=== PATIENT | male | born 1930 | race Caucasian/White ===

== ENCOUNTER 2018-12-25 10:55 | Emergency (ER) | payer MEDICARE, BC ==
[~2018-12-25] VITALS: Ht 167.6 cm; Wt 87.3 kg
[2018-12-25 11:24] LABS: HEMATOCRIT 38.6 % (39.0-50.0); HEMOGLOBIN 12.5 g/dl (14.0-18.0); IMMATURE GRANULOCYTES 0.8 % (0.0-5.0); MEAN CELL VOLUME 105.2 fL CALC (80.0-100.0); MEAN CORPUSCULAR HGB 34.1 pG CALC (26.0-32.0); MEAN CORPUSCULAR HGB CONC 32.4 g/L CALC (32.0-36.0); NEUT# 5.88 thou/uL (1.82-7.42); RED BLOOD COUNT 3.67 mill/uL (4.70-6.10); RED CELL DISTRI WIDTH 14.7 % (11.5-15.5)
[2018-12-25] MEDS ORDERED: FUROSEMIDE20 MG PO (11:42)
[2018-12-25] MEDS ORDERED: PROPAFENONE150 M1 PO (11:43)
[2018-12-25] MEDS ORDERED: ELIQUIS2.5 MG PO (11:43)
[2018-12-25] MEDS ORDERED: TAMSULOSIN HCL0.4 MG PO (11:44)
[2018-12-25] MEDS ORDERED: METOPROL TAR25 MG PO (11:44)
[2018-12-25] MEDS ORDERED: SIMVASTATIN20 MG PO (11:45)
[2018-12-25] MEDS ORDERED: VENTOLIN HFA IN (11:45)
[2018-12-25 11:46] LABS: ANION GAP 11 (6-22 (CALC)); BUN 28 mg/dL (8-23); BUN/CREATININE RATIO 19 (12-20 (CALC)); CARBON DIOXIDE 32 mmol/l (22-30); CHLORIDE 104 mmol/l (95-108); CREATININE 1.4 mg/dL (0.7-1.3); GFR 48 ML/MIN (>=60 (CALC)); GFR FOR AFR.AMER. 58 ML/MIN (>=60 (CALC)); POTASSIUM 4.6 mmol/l (3.5-5.1); SODIUM 142 mmol/l (137-146)
[2018-12-25] MEDS ORDERED: FLOVENT HF110 MCG/AC IN (11:46)
[2018-12-25 13:11] VITALS: BP 107/56
== END 2018-12-25 13:11 | disposition home or self-care (01) ==
LOC: ED 10:55
PROVIDERS: Family Medicine
DX: J06.9 Acute upper respiratory infection, unspecified (principal); J44.9 Chronic obstructive pulmonary disease, unspecified; I48.91 Unspecified atrial fibrillation; Z86.73 Personal history of transient ischemic attack (TIA), and cerebral infarction without residual deficits

== ENCOUNTER 2019-02-19 11:03 | Emergency (ER) | payer MEDICARE, BC ==
[~2019-02-19 11:03] MED LIST: ELIQUIS2.5 MG PO; FLOVENT HF110 MCG/AC IN; FUROSEMIDE20 MG PO; METOPROL TAR25 MG PO; PROPAFENONE150 M1 PO; SIMVASTATIN20 MG PO; TAMSULOSIN HCL0.4 MG PO; VENTOLIN HFA IN
[2019-02-19] MEDS ORDERED: CEPHALEXIN500 M1 PO (12:07)
[2019-02-19 12:29] VITALS: BP 120/62
== END 2019-02-19 12:29 | disposition home or self-care (01) ==
LOC: ED 11:03
DX: L60.0 Ingrowing nail (principal); L03.032 Cellulitis of left toe; J44.9 Chronic obstructive pulmonary disease, unspecified; I48.91 Unspecified atrial fibrillation; Z86.73 Personal history of transient ischemic attack (TIA), and cerebral infarction without residual deficits

== ENCOUNTER 2019-04-02 | Emergency (ER) | payer MEDICARE, BC ==
[~2019-04-02] MED LIST changes: +CEPHALEXIN500 M1 PO
--- NOTE | 2019-04-02 02:59 | NUR ---
BREATHING TREATMENT GIVEN BACK TO BACK.
[2019-04-02 03:04] LABS: HEMATOCRIT 35.3 % (39.0-50.0); HEMOGLOBIN 11.4 g/dl (14.0-18.0); IMMATURE GRANULOCYTES 0.6 % (0.0-5.0); MEAN CORPUSCULAR HGB 34.2 pG CALC (26.0-32.0); MEAN CORPUSCULAR HGB CONC 32.3 g/L CALC (32.0-36.0); NEUT# 5.02 thou/uL (1.82-7.42); RED BLOOD COUNT 3.33 mill/uL (4.70-6.10); RED CELL DISTRI WIDTH 15.2 % (11.5-15.5)
[2019-04-02 03:16] LABS: ALKALINE PHOSPHATASE 89 u/l (38-126); ANION GAP 14 (6-22 (CALC)); BILIRUBIN, TOTAL 0.4 mg/dL (0.0-1.4); BUN 34 mg/dL (8-23); BUN/CREATININE RATIO 19 (12-20 (CALC)); CARBON DIOXIDE 28 mmol/l (22-30); CHLORIDE 101 mmol/l (95-108); CREATININE 1.8 mg/dL (0.7-1.3); GFR 36 ML/MIN (>=60 (CALC)); GFR FOR AFR.AMER. 44 ML/MIN (>=60 (CALC)); POTASSIUM 4.5 mmol/l (3.5-5.1); SGOT/AST 33 u/l (19-48); SODIUM 139 mmol/l (137-146)
[2019-04-02 03:27] LABS: MYOGLOBIN 99 ng/mL (0 - 121)
[2019-04-02 04:56] LABS: URINE BILIRUBIN - DIPSTICK NEGATIVE (NEGATIVE); URINE BLOOD DIPSTICK SMALL (NEGATIVE); URINE COLOR YELLOW; URINE GLUCOSE - DIPSTICK NEGATIVE (NEGATIVE); URINE KETONE NEGATIVE (NEGATIVE); URINE LEUK ESTERASE NEGATIVE (NEGATIVE); URINE NITRITE - DIPSTICK NEGATIVE (Negative); URINE PH 5.5 (4.5-8.0); URINE PROTEIN - DIPSTICK NEGATIVE (NEG-TRACE); URINE SPECIFIC GRAVITY 1.025; URINE UROBILINOGEN - DIPSTICK 0.2 E.U./dL (0.2)
[2019-04-02 04:57] LABS: URINE SQUAMOUS EPITHELIAL CELL FEW EPI/hpf (0-FEW)
[2019-04-02] MEDS ORDERED: STERAPRED DS10 MG PO (05:00)
== END 2019-04-02 05:10 | disposition home or self-care (01) ==
PROVIDERS: Family Medicine
DX: J44.1 Chronic obstructive pulmonary disease with (acute) exacerbation (principal); I48.91 Unspecified atrial fibrillation; Z86.73 Personal history of transient ischemic attack (TIA), and cerebral infarction without residual deficits

== ENCOUNTER 2019-04-17 | Emergency (ER) | payer MEDICARE, BC ==
[~2019-04-17] MED LIST changes: +STERAPRED DS10 MG PO
[2019-04-17 12:22] LABS: IMMATURE GRANULOCYTES 1.4 % (0.0-5.0); MEAN CELL VOLUME 103.2 fL CALC (80.0-100.0); MEAN CORPUSCULAR HGB 34.4 pG CALC (26.0-32.0); MEAN CORPUSCULAR HGB CONC 33.3 g/L CALC (32.0-36.0); NEUT# 21.38 thou/uL (1.82-7.42); RED BLOOD COUNT 3.49 mill/uL (4.70-6.10); RED CELL DISTRI WIDTH 15.8 % (11.5-15.5)
[2019-04-17 12:33] LABS: ALBUMIN 3.7 g/dL (3.2-5.0); CREATININE 1.9 mg/dL (0.7-1.3); POTASSIUM 3.9 mmol/l (3.5-5.1)
[2019-04-17 12:34] LABS: BILIRUBIN, TOTAL 0.8 mg/dL (0.0-1.4)
[2019-04-17] MEDS ORDERED: DOXYCYCLINE100 MG PO (12:54)
[2019-04-17] MEDS ORDERED: PREDNISONE10 MG PO (12:54)
== END 2019-04-17 13:08 | disposition home or self-care (01) ==
DX: J44.1 Chronic obstructive pulmonary disease with (acute) exacerbation (principal); J44.0 Chronic obstructive pulmonary disease with (acute) lower respiratory infection; J18.9 Pneumonia, unspecified organism; I48.91 Unspecified atrial fibrillation

== ENCOUNTER 2021-09-08 08:32 | Emergency (ER) | payer MEDICARE, BC ==
[~2021-09-08] VITALS: Ht 167.6 cm; Wt 95.4 kg
[2021-09-08] VITALS (8 sets, daily range): BP systolic 116–147; BP diastolic 63–81
[~2021-09-08 08:32] MED LIST changes: +DOXYCYCLINE100 MG PO; +PREDNISONE10 MG PO
[2021-09-08 09:18] LABS: IMMATURE GRANULOCYTES 0.8 % (0.0-5.0); MEAN CELL VOLUME 110.2 fL CALC (80.0-100.0); MEAN CORPUSCULAR HGB 36.3 pG CALC (26.0-32.0); MEAN CORPUSCULAR HGB CONC 32.9 g/dL CAL (32.0-36.0); NEUT# 2.68 thou/uL (1.82-7.42); RED BLOOD COUNT 4.88 mill/uL (4.70-6.10); RED CELL DISTRI WIDTH 15.1 % (11.5-15.5)
[2021-09-08 09:21] LABS: HEMATOCRIT 53.8 % (39.0-50.0); HEMOGLOBIN 17.7 g/dl (14.0-18.0)
[2021-09-08] MEDS ORDERED: FUROSEMIDE20 MG PO (09:30)
[2021-09-08 09:45] LABS: ALBUMIN 3.9 g/dL (3.2-5.0); ALKALINE PHOSPHATASE 84 u/l (38-126); ANION GAP 10 (6-22 (CALC)); BILIRUBIN, TOTAL 0.3 mg/dL (0.0-1.4); BUN 36 mg/dL (8-23); BUN/CREATININE RATIO 23 (12-20 (CALC)); CARBON DIOXIDE 30 mmol/l (22-30); CHLORIDE 104 mmol/l (95-108); CREATININE 1.6 mg/dL (0.7-1.3); GFR FOR AFR.AMER. 50 ML/MIN (>=60 (CALC)); GFR OTHER RACES 41 ML/MIN (>=60 (CALC)); POTASSIUM 4.3 mmol/l (3.5-5.1); SGOT/AST 31 u/l (19-48); SODIUM 139 mmol/l (137-146)
== END 2021-09-08 10:36 | disposition home or self-care (01) ==
LOC: ED 08:32
PROVIDERS: Family Medicine
DX: U07.1 COVID-19 (principal); R05.9 Cough, unspecified; R53.1 Weakness; I10 Essential (primary) hypertension; J44.9 Chronic obstructive pulmonary disease, unspecified; I48.91 Unspecified atrial fibrillation; Z86.73 Personal history of transient ischemic attack (TIA), and cerebral infarction without residual deficits; R06.02 Shortness of breath

== ENCOUNTER 2022-06-29 07:12 | Observation (INO) | payer MEDICARE, BC ==
[~2022-06-29] VITALS: Ht 172.7 cm; Wt 98.5 kg
[2022-06-29] VITALS (27 sets, daily range): BP systolic 103–130; BP diastolic 47–97
[2022-06-29 07:53] LABS: BASO% 0.3 % (0-3); EOS% 0.8 % (0-8); HEMOGLOBIN 10.9 g/dl (14.0-18.0); IMMATURE GRANULOCYTES 0.6 % (0.0-5.0); LYMPH% 5.6 % (15-41); MEAN CELL VOLUME 110.4 fL CALC (80.0-100.0); MEAN CORPUSCULAR HGB 35.4 pG CALC (26.0-32.0); MEAN CORPUSCULAR HGB CONC 32.1 g/dL CAL (32.0-36.0); MONO% 10.8 % (2-13); NEUT# 9.75 thou/uL (1.82-7.42); NEUT% 81.9 % (42-76); RED BLOOD COUNT 3.08 mill/uL (4.70-6.10); RED CELL DISTRI WIDTH 14.7 % (11.5-15.5)
[2022-06-29 08:13] LABS: ALBUMIN 3.7 g/dL (3.2-5.0); CREATININE 1.9 mg/dL (0.7-1.3); POTASSIUM 4.3 mmol/l (3.5-5.1); TOTAL PROTEIN 6.3 g/dL (6.3-8.2)
[2022-06-29 08:16] LABS: BILIRUBIN, TOTAL 0.8 mg/dL (0.2-1.3)
[2022-06-29] MEDS ORDERED: TRELEGY ELLIPTA1 AE1 (09:02)
[2022-06-29] MEDS ORDERED: PROPAFENONE HY225 MG (09:03)
[2022-06-29] MEDS ORDERED: ALLOPURINOL100 MG PO (09:03)
[2022-06-29] MEDS ORDERED: SYMBICORT1 AE1 IN (09:04)
[2022-06-29 17:46] LABS: CREATININE 1.9 mg/dL (0.7-1.3); MAGNESIUM 2.2 mg/dL (1.6-2.3); POTASSIUM 4.6 mmol/l (3.5-5.1)
[2022-06-30 00:24] VITALS: BP 113/58
[2022-06-30 04:47] VITALS: BP 117/61
[2022-06-30 05:00] LABS: HEMATOCRIT 32.8 % (39.0-50.0); HEMOGLOBIN 10.6 g/dl (14.0-18.0); MEAN CELL VOLUME 110.8 fL CALC (80.0-100.0); MEAN CORPUSCULAR HGB 35.8 pG CALC (26.0-32.0); MEAN CORPUSCULAR HGB CONC 32.3 g/dL CAL (32.0-36.0); RED BLOOD COUNT 2.96 mill/uL (4.70-6.10); RED CELL DISTRI WIDTH 14.6 % (11.5-15.5)
[2022-06-30 05:22] LABS: ALBUMIN 3.5 g/dL (3.2-5.0); MAGNESIUM 2.4 mg/dL (1.6-2.3); POTASSIUM 4.4 mmol/l (3.5-5.1); TOTAL PROTEIN 6.1 g/dL (6.3-8.2)
[2022-06-30 05:31] LABS: BILIRUBIN, TOTAL 0.1 mg/dL (0.2-1.3)
[2022-06-30 05:34] VITALS: BP 117/61
[2022-06-30 07:31] VITALS: BP 119/58
[2022-06-30 12:10] VITALS: BP 114/51
[2022-06-30] MEDS ORDERED: ALBUTEROL SUL0.083 % IN (13:03)
[2022-06-30] MEDS ORDERED: AMOX/K CLAV875 M1 PO (13:04)
[2022-06-30] MEDS ORDERED: PREDNISONE10 MG PO (13:05)
== END 2022-06-30 14:48 | disposition home or self-care (01) ==
LOC: ED 07:12 → ED-I 10:50 → ED 11:01 → MS2 11:02
PROVIDERS: Family Medicine; ADMIT Internal Medicine; ATTEND Internal Medicine
DX: J44.1 Chronic obstructive pulmonary disease with (acute) exacerbation (principal); J96.01 Acute respiratory failure with hypoxia; I48.91 Unspecified atrial fibrillation; N18.9 Chronic kidney disease, unspecified; E78.5 Hyperlipidemia, unspecified; M10.9 Gout, unspecified; N40.0 Benign prostatic hyperplasia without lower urinary tract symptoms; Z86.73 Personal history of transient ischemic attack (TIA), and cerebral infarction without residual deficits; Z20.822 Contact with and (suspected) exposure to COVID-19

== ENCOUNTER 2022-07-20 06:32 | Observation (INO) | payer MEDICARE, BC ==
[2022-07-20] VITALS (16 sets, daily range): BP systolic 101–129; BP diastolic 58–81
[~2022-07-20] VITALS: Ht 172.7 cm; Wt 98.4 kg
[~2022-07-20 06:32] MED LIST changes: +ALBUTEROL SUL0.083 % IN; +ALLOPURINOL100 MG PO; +AMOX/K CLAV875 M1 PO; +PROPAFENONE HY225 MG; +SYMBICORT1 AE1 IN; +TRELEGY ELLIPTA1 AE1
--- NOTE | 2022-07-20 06:54 | NUR ---
arrived via ems with c/o shortness of breath
--- NOTE | 2022-07-20 07:15 | NUR ---
REPORT R'CD, CARE RESUMED. PT IS SITTING UP IN BED, FAMILY AT BEDSIDE, MEDS GIVEN, PT ASSESSED.
[2022-07-20 07:16] LABS: BASO% 0.2 % (0-3); EOS% 0.2 % (0-8); HEMATOCRIT 33.1 % (39.0-50.0); HEMOGLOBIN 10.7 g/dl (14.0-18.0); IMMATURE GRANULOCYTES 0.5 % (0.0-5.0); LYMPH% 3.5 % (15-41); MEAN CELL VOLUME 111.4 fL CALC (80.0-100.0); MEAN CORPUSCULAR HGB CONC 32.3 g/dL CAL (32.0-36.0); MONO% 5.2 % (2-13); NEUT# 15.06 thou/uL (1.82-7.42); NEUT% 90.4 % (42-76); RED BLOOD COUNT 2.97 mill/uL (4.70-6.10); RED CELL DISTRI WIDTH 16.4 % (11.5-15.5)
[2022-07-20 07:30] LABS: ALBUMIN 3.7 g/dL (3.2-5.0); CREATININE 1.4 mg/dL (0.7-1.3); POTASSIUM 3.9 mmol/l (3.5-5.1); TOTAL PROTEIN 6.4 g/dL (6.3-8.2)
[2022-07-20 07:31] LABS: BILIRUBIN, TOTAL 0.6 mg/dL (0.2-1.3)
[2022-07-20 07:57] LABS: URINE BILIRUBIN - DIPSTICK NEGATIVE (NEGATIVE); URINE BLOOD DIPSTICK NEGATIVE (NEGATIVE); URINE COLOR YELLOW; URINE GLUCOSE - DIPSTICK NEGATIVE (NEGATIVE); URINE KETONE NEGATIVE (NEGATIVE); URINE LEUK ESTERASE NEGATIVE (NEGATIVE); URINE PROTEIN - DIPSTICK NEGATIVE (NEG-TRACE); URINE UROBILINOGEN - DIPSTICK 0.2 E.U./dL (0.2)
[2022-07-20 07:58] LABS: URINE NITRITE - DIPSTICK NEGATIVE (Negative)
--- NOTE | 2022-07-20 08:15 | NUR ---
PT IN NAD, FAMILY AT BEDSIDE.
--- NOTE | 2022-07-20 09:00 | NUR ---
PT PROVIDED BREAKFAST, ALL NEEDS HAVE BEEN ADDRESSED.
--- NOTE | 2022-07-20 09:35 | NUR ---
REPORT GIVEN TO LISSET SAUCEDA WILL BE TRANSFERRED TO [facility] [place] RM 260
[2022-07-20] MEDS ORDERED: TOPROL XL50 MG PO (09:36)
--- NOTE | 2022-07-20 09:46 | NUR ---
PT ARRIVED TO [facility]IA [facility]ER. REPORT PROVIDED BY JEFF REED. A/OX3 AMBULATORY WITH [facility] STATES USES WALKER AT HOME. HEART RHYTHM ON TELE AFIB.RESPIATIONS ON 3L NC HOME DEPENDENT AT 4L. IV SITE NOTED . PT AWARE TO KEEP TRACK ON INPUT AND OUT PUT. PT DENIES ADDITIONAL NEEDS AT THE TIME ALL SAFETY PRECAUTIONS INPLACE.
--- NOTE | 2022-07-20 12:14 | NUR ---
PT MEDICATED PER EMAR. PHARMACY CALLED FOR PT HOME MEDICATION.
--- NOTE | 2022-07-20 16:05 | NUR ---
PT TO BE MEDICATED PER EMAR. PT RESTING IN HIGH FOWLERS POSITION IN CHAIR. 3LNC. PT STATES PT DISLIKE BEING ALONE. PT DENIES ADDITIONAL NEEDS AT THE TIME.
--- NOTE | 2022-07-20 20:00 | NUR ---
RECEIVED REPORT FROM DAYSHIFT NURSE. PT IS SITTING UP IN CHAIR WITH FAMILY AT BEDSIDE. ADVISED PT OF CHANGE OF NURSE FOR THE NIGHT. PT HAS NO COMPLAINTS AT THIS MOMENT. CALL LIGHT WITHIN REACH AND SAFETY PRECAUTIONS IN PLACE.
[2022-07-21] VITALS (11 sets, daily range): BP systolic 107–126; BP diastolic 53–67
--- NOTE | 2022-07-21 | NUR ---
PT IS LYING IN BED SLEEPING. PT SHOWS NO SIGNS OF PAIN OR DISCOMFORT. CALL LIGHT WITHIN REACH AND SAFETY PRECAUTIONS IN PLACE.
--- NOTE | 2022-07-21 04:00 | NUR ---
PT IS SLEEPING COMFORTABLY. NO SIGNS OF PAIN OR DISTRESS AT THE MOMENT. CALL LIGHT WITHIN REACH AND SAFETY PRECAUTIONS IN PLACE.
--- NOTE | 2022-07-21 05:33 | NUR ---
PT REFUSING TO BE WEIGHED AT THIS TIME. PT EDUCATED ON DAILY WEIGHT AND THE NEED FOR IT. PT STATES "I WANT TO BE LEFT ALONE. I AM SUPPOSE TO BE RESTING." WEIGHT TO BE OBTAIN LATER IN AM.
[2022-07-21 05:44] LABS: BASO% 0.1 % (0-3); HEMATOCRIT 31.8 % (39.0-50.0); HEMOGLOBIN 10.3 g/dl (14.0-18.0); IMMATURE GRANULOCYTES 0.4 % (0.0-5.0); LYMPH% 2.2 % (15-41); MEAN CELL VOLUME 110.4 fL CALC (80.0-100.0); MEAN CORPUSCULAR HGB 35.8 pG CALC (26.0-32.0); MEAN CORPUSCULAR HGB CONC 32.4 g/dL CAL (32.0-36.0); MONO% 1.4 % (2-13); NEUT# 15.39 thou/uL (1.82-7.42); NEUT% 95.9 % (42-76); RED BLOOD COUNT 2.88 mill/uL (4.70-6.10); RED CELL DISTRI WIDTH 16.3 % (11.5-15.5)
[2022-07-21 06:02] LABS: ALBUMIN 3.4 g/dL (3.2-5.0); CREATININE 1.6 mg/dL (0.7-1.3); MAGNESIUM 2.2 mg/dL (1.6-2.3); POTASSIUM 4.5 mmol/l (3.5-5.1); TOTAL PROTEIN 6.1 g/dL (6.3-8.2)
[2022-07-21 06:14] LABS: BILIRUBIN, TOTAL 0.2 mg/dL (0.2-1.3)
--- NOTE | 2022-07-21 07:15 | NUR ---
PERFORMED BEDSIDE REPORT WITH SPEAKER WIRER NURSE. PT NOTED SITTING UP IN CHAIR, NASAL CANNULA IN PLACE, IN ROOM. PT IS A/OX3, MOOD WAS VERY PLEASENT. PT DENIED ANY PAIN AT THIS TIME. EDUCATED PT ON PLAN OF CARE FOR TODAY. CALL LIGHT WITHIN REACH AND SAFETY PRECAUTIONS IN PLACE.
--- NOTE | 2022-07-21 12:06 | NUR ---
PT SITTING UP IN CHAIR EATING LUNCH. NASAL CANNULA IN PLACE. DENIES ANY PAIN AT THIS TIME. CALL LIGHT WITHIN REACH AND SAFETY PRECAUTIONS IN PLACE.
--- NOTE | 2022-07-21 17:24 | NUR ---
PT IS LAYING SEMI FOWLERS IN BED, IN ROOM. PT ATE DINNER. DENIES ANY PAIN AT THIS TIME. NASAL CANNULA IN PLACE. CALL LIGHT WITHIN REACH AND SAFETY PRECAUTIONS IN PLACE.
--- NOTE | 2022-07-21 19:31 | NUR ---
RECEIVED BESIDE REPORT AT START OF SHIFT. PT SITTING IN RECLINER CHAIR. FAMILY MEMBERS PRESENT. ALERT AND ORIENTED. PLEAANT. NO C/O OFFERED. CALL LIGHT IN REACH.
--- NOTE | 2022-07-22 03:17 | NUR ---
PT SLEEPING WELL. ON TELE AFIB HR 78. BED IS LOCKED. CALL LIGHT IN REACH.
--- NOTE | 2022-07-22 05:28 | NUR ---
patient refused to get weight and vitals at 4am, nurse krysten
--- NOTE | 2022-07-22 07:00 | NUR ---
SHIFT CHANGE REPORT, PT SLEEPING AND REQUESTED NOT TO BE DISTURBED, O2 @ 2L VIA NC IN PLACE, TELE MONITOR IN PLACE, CALL WEAVER IN REACH AND BED LOCKED IN LOWEST POSITION. SPOUSE AT BEDSIDE.
[2022-07-22 07:12] VITALS: BP 116/70
[2022-07-22 07:34] LABS: HEMATOCRIT 33.3 % (39.0-50.0); HEMOGLOBIN 10.6 g/dl (14.0-18.0); MEAN CELL VOLUME 111.4 fL CALC (80.0-100.0); MEAN CORPUSCULAR HGB 35.5 pG CALC (26.0-32.0); MEAN CORPUSCULAR HGB CONC 31.8 g/dL CAL (32.0-36.0); RED BLOOD COUNT 2.99 mill/uL (4.70-6.10); RED CELL DISTRI WIDTH 16.2 % (11.5-15.5)
[2022-07-22 07:53] LABS: ALBUMIN 3.8 g/dL (3.2-5.0); MAGNESIUM 2.2 mg/dL (1.6-2.3); POTASSIUM 4.6 mmol/l (3.5-5.1); TOTAL PROTEIN 6.8 g/dL (6.3-8.2)
[2022-07-22 07:54] LABS: BILIRUBIN, TOTAL 0.3 mg/dL (0.2-1.3)
--- NOTE | 2022-07-22 08:00 | NUR ---
PT AWAKE ALERT AND ORIENTED SITTING UP IN RECLINER, NO C/O DISCOMFORT AT THIS TIME, SPOUSE IN ROOM.
[2022-07-22] MEDS ORDERED: PREDNISONE10 MG PO (09:29)
[2022-07-22] MEDS ORDERED: VIBRAMYCIN100 M2 PO (09:30)
[2022-07-22 11:41] VITALS: BP 101/59
--- NOTE | 2022-07-22 12:40 | NUR ---
Discharge instructions given. Patient verbalizes understanding of same. Discharged in stable condition via Wheelchair to Home with spouse. All belongings sent with pt.
== END 2022-07-22 13:00 | disposition home or self-care (01) ==
LOC: ED 06:32 → ED-I 08:50 → ED 09:25 → MS2 09:26
PROVIDERS: Family Medicine; Nurse Practitioner Family; ADMIT Internal Medicine; ATTEND Internal Medicine
DX: J44.1 Chronic obstructive pulmonary disease with (acute) exacerbation (principal); J96.21 Acute and chronic respiratory failure with hypoxia; I13.0 Hypertensive heart and chronic kidney disease with heart failure and stage 1 through stage 4 chronic kidney disease, or unspecified chronic kidney disease; I50.33 Acute on chronic diastolic (congestive) heart failure; N18.30 Chronic kidney disease, stage 3 unspecified; I48.91 Unspecified atrial fibrillation; N40.0 Benign prostatic hyperplasia without lower urinary tract symptoms; E78.5 Hyperlipidemia, unspecified; M10.9 Gout, unspecified; Z99.81 Dependence on supplemental oxygen; Z86.73 Personal history of transient ischemic attack (TIA), and cerebral infarction without residual deficits; Z20.822 Contact with and (suspected) exposure to COVID-19